=== PATIENT | male | born 1995 | race Caucasian/White ===

== ENCOUNTER 2023-04-09 11:03 | Emergency (ER) | payer OTHER ==
[~2023-04-09] VITALS: Ht 170.2 cm; Wt 100.0 kg
[2023-04-09 11:26] VITALS: O2SAT 99
[2023-04-09] MEDS ORDERED: CYCLOBENZAPRINE 10MG TABLET PO NR (14:15)
[2023-04-09] MEDS ORDERED: KETOROLAC 60MG/2ML VIAL IM NR (14:15)
[2023-04-09] MEDS ORDERED: KETOROLAC 60MG/2ML VIAL IM ONE (14:15)
[2023-04-09] MEDS ORDERED: CYCLOBENZAPRINE 10MG TABLET PO ONE (14:15)
[2023-04-09] MEDS ORDERED: IBUP-2030 MT (19:33)
[2023-04-09] MEDS ORDERED: CYCL10TA21 MT (19:33)
[2023-04-09 19:47] VITALS: BP 116/70; PULSE 89; RESP 18; TEMP 98.6
== END 2023-04-09 19:48 | disposition home or self-care (01) ==
LOC: ER 11:03
DX: S39.012A Strain of muscle, fascia and tendon of lower back, initial encounter (principal); Z90.49 Acquired absence of other specified parts of digestive tract; X50.0XXA Overexertion from strenuous movement or load, initial encounter; Y93.89 Activity, other specified; Y92.89 Other specified places as the place of occurrence of the external cause; Y99.8 Other external cause status
CPT/HCPCS: 99283; 96372; J1885